=== PATIENT | female | born 1985 | race African-American/Black ===

== ENCOUNTER 2016-05-10 21:30 | Emergency (ER) | payer OTHER ==
[~2016-05-10 21:30] MED LIST: AMOXICILLIN500 M1 PO; BACTRIM DS TABL1 TA1 PO; CIPRO PO; DIFLUCAN PO; FLAGYL PO; FLEXERIL10 MG PO; HYDROCODON-ACE1 EACH PO; LORTAB 7.5-5001 TAB PO; METROGEL60 GM VAG; NAPROSYN500 MG PO; NORCO 5/325 TAB1 TAB PO; ULTRAM PO
== END 2016-05-10 21:35 | disposition home or self-care (01) ==
LOC: CFTX 21:30
DX: S16.1XXA Strain of muscle, fascia and tendon at neck level, initial encounter (principal); S39.012A Strain of muscle, fascia and tendon of lower back, initial encounter; Z79.899 Other long term (current) drug therapy; V49.40XA Driver injured in collision with unspecified motor vehicles in traffic accident, initial encounter; Y92.488 Other paved roadways as the place of occurrence of the external cause
CPT/HCPCS: 99283